=== PATIENT | female | born 2000 | race Two or more races ===

== ENCOUNTER 2024-02-25 11:04 | Emergency (ER) | payer OTHER ==
[~2024-02-25] VITALS: Ht 165.1 cm; Wt 68.0 kg
[~2024-02-25 11:04] MED LIST: FLOVENT13 G1; KETO10TA2 PO; NORFLEX100MG PO
[2024-02-25] MEDS ORDERED: HUMALOG100 UNIT/2 SQ (11:20)
[2024-02-25] MEDS ORDERED: 0.9 % SODIUM CHLORIDE 1,000 ML IV ONE (11:30)
[2024-02-25 12:25] LABS: ABG PH 7.378 (7.35-7.45); ABG PO2 97.9 mmHg (80-100); BASE EXCESS -2.3 mmol/l; BICARBONATE 22.5 mmol/l (23-25); SaO2 97.3 %; Tco2 23.7 mmol/l; o2 21 %
[2024-02-25 12:26] LABS: allen test SATISFACTORY; puncture site RADIAL RIGHT
[2024-02-25 12:54] LABS: HEMATOCRIT 36.5 % (36.0-45.00); HEMOGLOBIN 11.7 g/dL (12.0-15.00); MEAN CELL VOLUME 74.1 fL (80.00-100.00); MEAN CORPUSCULAR HEMOGLOBIN 23.8 pg (27.00-32.0); MEAN CORPUSCULAR HGB CONC 32.2 g/dl (32.0-36.0); PLATELET COUNT 183 K/uL (150-450); RED BLOOD COUNT 4.93 M/uL (4.00-6.00)
[2024-02-25 13:03] LABS: RED CELL DISTRIBUTION WIDTH 16.5 % (11.5-14.5)
[2024-02-25 13:33] LABS: ALBUMIN 3.9 gm/dL (3.4-5.0); ALKALINE PHOSPHATASE 39 U/L (50-136); ALT/SGPT 18 U/L (12-78); ANION GAP 10 (10.0-20.0); AST/SGOT 22 U/L (15-37); BILIRUBIN TOTAL 0.31 mg/dL (0.3-1.2); BLOOD UREA NITROGEN 17 mg/dL (7-18); BUN CREA RATIO 18 (7.0-25.0); CALCIUM 9.5 mg/dL (8.5-10.1); CARBON DIOXIDE 28 mEq/L (21-32); CHLORIDE 107 mmol/L (98-107); CREATININE SERUM 0.96 mg/dL (0.55-1.02); GFR 73.37; GLOBULINA 4.4 G/DL (2.4-3.5); HCG QUANTITATIVE < 1 mUI/mL (1-3); OSMOLALITY SERUM 291 MOSM/KG (275-295); PHOSPHOROUS 2.1 mg/dL (2.5-4.9); POTASSIUM 3.75 mEq/L (3.5-5.1); SODIUM 141 mmol/L (136-145); TOTAL PROTEIN 8.3 gm/dL (6.4-8.2)
[2024-02-25 13:34] LABS: GLUCOSE FASTING 240 mg/dL (65-100)
== END 2024-02-25 14:48 | disposition home or self-care (01) ==
LOC: ER 11:06
PROVIDERS: General Practice
DX: T67.5XXA Heat exhaustion, unspecified, initial encounter (principal); X58.XXXA Exposure to other specified factors, initial encounter; Y92.89 Other specified places as the place of occurrence of the external cause; E10.9 Type 1 diabetes mellitus without complications; Z79.4 Long term (current) use of insulin; Z91.018 Allergy to other foods